=== PATIENT | female | born 1985 | race Caucasian/White ===

== ENCOUNTER 2016-11-25 01:00 | Emergency (ER) | payer MEDICAID ==
[~2016-11-25] VITALS: Ht 149.9 cm; Wt 63.0 kg
[2016-11-25 02:33] LABS: BASOPHILS % 0.6 % (0.0-2.0); CHLORIDE 107 mEq/L (98-107); EOSINOPHILS % 1.7 % (0.0-5.0); HEMATOCRIT. 33.3 % (36.0-48.0); HEMOGLOBIN. 11.3 g/dL (12.0-16.0); INDEX HEMOLYSI 1 (1-3); INDEX ICTERIC 1 (1-4); INDEX LIPEMIC 1 (1-3); LYMPHOCYTES % 16.9 % (20.0-50.0); MEAN CORPUSCULAR HEMOGLOBIN 28.1 pg (28.0-32.0); MEAN CORPUSCULAR HGB CONC 33.9 g/dL (31.0-37.0); MEAN CORPUSCULAR VOLUME 82.8 fL (81.0-99.0); MEAN PLATELET VOLUME 9.8 fl (7.4-10.4); MONOCYTES % 7.4 % (2.0-8.0); NEUTROPHILS % 73.4 % (40.0-76.0); PLATELET 265 x1000/uL (130-400); RED BLOOD CELL COUNT 4.03 mill/uL (4.2-5.4); RED CELL DISTRIBUTION WIDTH 13.9 % (11.6-14.6)
[2016-11-25 02:49] LABS: ANION GAP 11; CALCIUM 8.4 mg/dL (8.5-10.1); CARBON DIOXIDE 23 mEq/L (21-32); UREA NITROGEN BLOOD 11 mg/dL (7-21); eGFR > 60 mL/min (>60)
[2016-11-25 02:55] LABS: B-HCG QUANTITATIVE 8128 mIU/mL (<3)
[2016-11-25] MEDS ORDERED: ACETAMINOPHEN 500MG TABLET PO ONE (03:30)
[2016-11-25 06:59] VITALS: BP 103/57
== END 2016-11-25 07:05 | disposition home or self-care (01) ==
LOC: ER 01:28
DX: O03.9 Complete or unspecified spontaneous abortion without complication (principal); O02.81 Inappropriate change in quantitative human chorionic gonadotropin (hCG) in early pregnancy; Z3A.00 Weeks of gestation of pregnancy not specified; Z90.49 Acquired absence of other specified parts of digestive tract
CPT/HCPCS: 36415; 76801; 80048; 84702; 85025; 86850; 86900; 86901; 99285; Z7610

== ENCOUNTER 2020-10-28 11:22 | Observation (INO) | payer MEDICAID, OTHER ==
[~2020-10-28] VITALS: Ht 149.9 cm; Wt 76.2 kg
== END 2020-10-28 12:35 | disposition home or self-care (01) ==
LOC: 8 EST LDRP 11:22
PROVIDERS: ADMIT Obstetrics & Gynecology; ATTEND Obstetrics & Gynecology
DX: O26.893 Other specified pregnancy related conditions, third trimester (principal); R10.9 Unspecified abdominal pain; Z3A.38 38 weeks gestation of pregnancy
CPT/HCPCS: 59025; G0378; 99281

== ENCOUNTER 2020-11-01 20:25 | Emergency (ER) | payer OTHER ==
[~2020-11-01] VITALS: Ht 149.9 cm; Wt 76.0 kg
[2020-11-01 20:33] VITALS: BP 140/87
[2020-11-01] MEDS ORDERED: ACETAMINOPHEN 325MG TABLET PO ONE (22:30)
== END 2020-11-01 23:39 | disposition home or self-care (01) ==
LOC: ER 20:25
DX: L03.317 Cellulitis of buttock (principal); Z98.890 Other specified postprocedural states
CPT/HCPCS: 99284; Z7610

== ENCOUNTER 2020-11-21 12:13 | Inpatient (IN) | payer MEDICAID ==
[~2020-11-21] VITALS: Ht 149.9 cm; Wt 78.5 kg
[2020-11-21] MEDS ORDERED: DEXT 5%/LR + PITOCIN 20UNITS/L 1,000 ML IV SCH ×2 (13:30→16:45)
[2020-11-21] MEDS ORDERED: LACTATED RINGERS 1,000 ML IV SCH (13:30)
[2020-11-21 14:04] LABS: BASOPHILS % 0.5 % (0.0-2.0); EOSINOPHILS % 0.3 % (0.0-5.0); HEMATOCRIT. 35.3 % (36.0-48.0); HEMOGLOBIN. 12.4 g/dL (12.0-16.0); LYMPHOCYTES % 19.5 % (20.0-50.0); MEAN CORPUSCULAR HEMOGLOBIN 31.3 pg (28.0-32.0); MEAN CORPUSCULAR VOLUME 88.8 fL (81.0-99.0); MEAN PLATELET VOLUME 10.6 fl (7.4-10.4); NEUTROPHILS % 72.7 % (40.0-76.0); PLATELET 229 x1000/uL (130-400); RED BLOOD CELL COUNT 3.97 mill/uL (4.2-5.4); RED CELL DISTRIBUTION WIDTH 13.9 % (11.6-14.6)
[2020-11-21 14:09] LABS: CLARITY URINE CLEAR (CLEAR); COLOR URINE YELLOW (YELLOW); KETONES URINE NEGATIVE (NEGATIVE); LEUKOCYTE ESTERASE URINE TRACE (NEGATIVE); NITRITE URINE NEGATIVE (NEGATIVE); OCCULT BLOOD URINE NEGATIVE (NEGATIVE); PH URINE 5.5 (4.5-8.0); PROTEIN URINE NEGATIVE (NEGATIVE); SPECIFIC GRAVITY URINE 1.022 (1.005-1.030); UROBILINOGEN URINE 0.2 E.U./dL (0.2-1.0)
[2020-11-21 14:15] LABS: PARTIAL THROMBOPLASTIN TIME 27.3 sec (23.4-31.0); PROTHROMBIN TIME 10.3 sec (9.6-11.0)
[2020-11-21] MEDS ORDERED: MORPHINE SULFATE/PF 1MG/ML 10ML AMP ONE (14:24)
[2020-11-21] MEDS ORDERED: OXYTOCIN 10 UNITS/ML 1ML ONE (14:27)
[2020-11-21] MEDS ORDERED: EPHEDRINE SULFATE 50MG/ML VIAL ONE ×2 (14:28→14:47)
[2020-11-21] MEDS ORDERED: SODIUM CHLORIDE 0.9% 10ML VIAL ONE ×2 (14:28→15:13)
[2020-11-21] MEDS ORDERED: CITRIC ACID/SODIUM CITRATE SOLN 30ML UDC PO SCH (14:30)
[2020-11-21 14:32] LABS: *AMPHETAMINES SCREEN URINE NEGATIVE (NEGATIVE); *BARBITURATES SCREEN URINE NEGATIVE (NEGATIVE); *BENZODIAZEPINES SCREEN URINE NEGATIVE (NEGATIVE); *COCAINE SCREEN URINE NEGATIVE (NEGATIVE); METHADONE URINE SCREEN NEGATIVE (NEGATIVE)
[2020-11-21 14:33] LABS: CANNABINOID URINE SCREEN NEGATIVE (NEGATIVE); OPIATES URINE SCREEN NEGATIVE (NEGATIVE); PHENCYCLIDINE URINE SCREEN NEGATIVE (NEGATIVE)
[2020-11-21 14:47] LABS: HEPATITIS B SURFACE ANTIGEN NEGATIVE
[2020-11-21] MEDS ORDERED: PHENYLEPHRINE HCL 10 MG/ML 1ML (IV VIAL) IV ONE (14:49)
[2020-11-21] MEDS ORDERED: METOCLOPRAMIDE HCL 10MG/2ML VIAL ONE (14:52)
[2020-11-21] MEDS ORDERED: GLYCOPYRROLATE 0.2 MG/ML 2ML VIAL ONE (15:07)
[2020-11-21] MEDS ORDERED: CEFAZOLIN SODIUM 1000MG/VIAL ONE (15:13)
[2020-11-21] MEDS ORDERED: ONDANSETRON HCL 4MG/2ML INJ ONE (15:51)
[2020-11-21] MEDS ORDERED: DEXAMETHASONE 4MG/ML 1ML VIAL ONE (16:03)
[2020-11-21] MEDS ORDERED: ONDANSETRON HCL 4MG/2ML INJ IV PRN (16:45)
[2020-11-21] MEDS ORDERED: KETOROLAC 30MG/ML VIAL IV PRN (16:45)
[2020-11-21] MEDS ORDERED: RHO(D) IMMUNE GLOBULIN 300 MCG/SYR IM PRN (16:45)
[2020-11-21] MEDS ORDERED: BISACODYL 10MG SUPP PR PRN (16:45)
[2020-11-21] MEDS ORDERED: IBUPROFEN 400MG TABLET PO PRN (16:45)
[2020-11-21 18:45] VITALS: BP 120/67
[2020-11-21 21:30] VITALS: BP 121/71
[2020-11-22 01:00] VITALS: BP 118/69
[2020-11-22 05:10] VITALS: BP 115/70
[2020-11-22 06:38] LABS: BASOPHILS % 0.2 % (0.0-2.0); HEMATOCRIT. 30.3 % (36.0-48.0); HEMOGLOBIN. 10.7 g/dL (12.0-16.0); LYMPHOCYTES % 8.6 % (20.0-50.0); MEAN CORPUSCULAR HEMOGLOBIN 31.7 pg (28.0-32.0); MEAN CORPUSCULAR VOLUME 89.6 fL (81.0-99.0); MEAN PLATELET VOLUME 10.6 fl (7.4-10.4); MONOCYTES % 3.7 % (2.0-8.0); NEUTROPHILS % 87.5 % (40.0-76.0); PLATELET 181 x1000/uL (130-400); RED BLOOD CELL COUNT 3.38 mill/uL (4.2-5.4); RED CELL DISTRIBUTION WIDTH 13.9 % (11.6-14.6)
[2020-11-22 07:39] VITALS: BP 116/76
[2020-11-22 16:08] VITALS: BP 101/55
[2020-11-22 19:30] VITALS: BP 113/75
[2020-11-22] MEDS: IBUPROFEN 800MG TABLET PO PRN (19:42)
[2020-11-23] MEDS: IBUPROFEN 800MG TABLET PO PRN ×2 (03:28→08:50)
[2020-11-23 04:00] VITALS: BP 119/72
[2020-11-23] MEDS ORDERED: FERR325T6 MT (06:40)
[2020-11-23] MEDS ORDERED: MULT1TAB76 MT (06:40)
[2020-11-23] MEDS ORDERED: IBUP-2030 PO (06:40)
[2020-11-23 07:30] VITALS: BP 116/73
[2020-11-23 10:35] LABS: BASOPHILS % 0.5 % (0.0-2.0); EOSINOPHILS % 1.2 % (0.0-5.0); HEMATOCRIT. 30.4 % (36.0-48.0); HEMOGLOBIN. 10.5 g/dL (12.0-16.0); LYMPHOCYTES % 16.2 % (20.0-50.0); MEAN CORPUSCULAR HEMOGLOBIN 31.3 pg (28.0-32.0); MEAN CORPUSCULAR VOLUME 90.7 fL (81.0-99.0); MEAN PLATELET VOLUME 10.1 fl (7.4-10.4); MONOCYTES % 6.5 % (2.0-8.0); NEUTROPHILS % 75.6 % (40.0-76.0); PLATELET 165 x1000/uL (130-400); RED BLOOD CELL COUNT 3.35 mill/uL (4.2-5.4)
== END 2020-11-23 12:00 | disposition home or self-care (01) | DRG 541 ==
LOC: 8 EST LDRP 12:13 → OBSVTOIN 12:13 → INTOOBSV 12:13 → 8EST 18:50
PROVIDERS: ADMIT Obstetrics & Gynecology; ATTEND Obstetrics & Gynecology
PROC: 10E0XZZ Delivery of Products of Conception, External Approach (ICD-10-PCS; principal; 2020-11-21)
PROC: 0UB70ZZ Excision of Bilateral Fallopian Tubes, Open Approach (ICD-10-PCS; 2020-11-21)
DX: O34.211 Maternal care for low transverse scar from previous cesarean delivery (principal); O69.81X0 Labor and delivery complicated by cord around neck, without compression, not applicable or unspecified; O99.03 Anemia complicating the puerperium; Z37.0 Single live birth; Z3A.37 37 weeks gestation of pregnancy; Z30.2 Encounter for sterilization
CPT/HCPCS: 36415; 80305; 81003; 85025; 86592; 86703; 86762; 86850; 86900; 87340; 87426; 88302; 88307; 99281; J0690; J1100; J2274; J2370; J2405; J2590; J2765; J3490; J7120

== ENCOUNTER 2021-06-14 22:41 | Emergency (ER) | payer MEDICAID ==
[~2021-06-14] VITALS: Ht 154.9 cm; Wt 70.4 kg
[~2021-06-14 22:41] MED LIST: FERR325T6 MT; IBUP-2030 PO; MULT1TAB76 MT
[2021-06-15] MEDS ORDERED: VISCOUS LIDOCAINE 2% 15 ML UDC PO STA (01:16)
[2021-06-15] MEDS ORDERED: MAGNESIUM/ALUMINUM HYDROXIDE/SIMETHICONE 30ML UDC PO STA (01:16)
[2021-06-15] MEDS ORDERED: IBUPROFEN 600MG TABLET PO STA (01:16)
[2021-06-15 02:10] LABS: BASOPHILS % 0.6 % (0.0-2.0); EOSINOPHILS % 0.9 % (0.0-5.0); HEMATOCRIT. 38.2 % (36.0-48.0); HEMOGLOBIN. 13.1 g/dL (12.0-16.0); LYMPHOCYTES % 22.9 % (20.0-50.0); MEAN CORPUSCULAR HEMOGLOBIN 29.1 pg (28.0-32.0); MEAN CORPUSCULAR VOLUME 84.7 fL (81.0-99.0); MEAN PLATELET VOLUME 10.2 fl (7.4-10.4); MONOCYTES % 6.2 % (2.0-8.0); NEUTROPHILS % 69.4 % (40.0-76.0); PLATELET 315 x1000/uL (130-400); RED BLOOD CELL COUNT 4.51 mill/uL (4.2-5.4); RED CELL DISTRIBUTION WIDTH 13.6 % (11.6-14.6)
[2021-06-15 02:16] LABS: CHLORIDE 109 mEq/L (98-107)
[2021-06-15 02:19] LABS: COLOR URINE YELLOW (YELLOW); KETONES URINE NEGATIVE (NEGATIVE); LEUKOCYTE ESTERASE URINE NEGATIVE (NEGATIVE); NITRITE URINE NEGATIVE (NEGATIVE); OCCULT BLOOD URINE NEGATIVE (NEGATIVE); PROTEIN URINE NEGATIVE (NEGATIVE); SPECIFIC GRAVITY URINE 1.021 (1.005-1.030); UROBILINOGEN URINE 0.2 E.U./dL (0.2-1.0)
[2021-06-15 02:23] LABS: CLARITY URINE HAZY (CLEAR)
[2021-06-15 02:32] LABS: HCG SCREEN NEGATIVE
[2021-06-15] MEDS ORDERED: AMOX-424 MT (03:58)
[2021-06-15] MEDS ORDERED: IBUP-2028 MT (03:58)
[2021-06-15] MEDS ORDERED: HYDR-4001 MT (03:58)
[2021-06-15] MEDS ORDERED: AMOXICILLIN/POTASSIUM CLAVULANATE 875/125MG TAB PO ONE (04:15)
[2021-06-15] MEDS ORDERED: HYDROCODONE/ACETAMINOPHEN 5/325MG TABLET PO ONE (04:15)
[2021-06-15 04:41] VITALS: BP 115/74
== END 2021-06-15 04:58 | disposition home or self-care (01) ==
LOC: ER 22:41
DX: K57.92 Diverticulitis of intestine, part unspecified, without perforation or abscess without bleeding (principal); R10.12 Left upper quadrant pain; Z98.890 Other specified postprocedural states; Z98.51 Tubal ligation status
CPT/HCPCS: 36415; 74176; 80053; 81003; 81025; 84703; 85025; 99284

== ENCOUNTER 2023-12-11 15:52 | Emergency (ER) | payer MEDICAID, OTHER ==
[~2023-12-11] VITALS: Ht 149.9 cm; Wt 72.6 kg
[~2023-12-11 15:52] MED LIST changes: +AMOX-424 MT; +HYDR-4001 MT; +IBUP-2028 MT
[2023-12-11 16:18] VITALS: BP 133/86; PULSE 91; RESP 16; TEMP 98.4; O2SAT 99
[2023-12-11 16:56] LABS: BASOPHILS % 0.7 % (0.0-2.0); DIFFERENTIAL COMMENT 0; EOSINOPHILS % 1.2 % (0.0-5.0); HEMATOCRIT. 31.8 % (36.0-48.0); HEMOGLOBIN. 10.6 g/dL (12.0-16.0); LYMPHOCYTES % 24.7 % (20.0-50.0); MEAN CORPUSCULAR HEMOGLOBIN 25.1 pg (28.0-32.0); MEAN CORPUSCULAR HGB CONC 33.4 g/dL (31.0-37.0); MEAN PLATELET VOLUME 9.6 fl (7.4-10.4); MONOCYTES % 7.7 % (2.0-8.0); NEUTROPHILS % 65.7 % (40.0-76.0); PLATELET 400 x1000/uL (130-400); RED BLOOD CELL COUNT 4.24 mill/uL (4.2-5.4); RED CELL DISTRIBUTION WIDTH 16.2 % (11.6-14.6); WHITE BLOOD COUNT 10.5 x1000/uL (4.5-11.0)
[2023-12-11 17:15] LABS: ALANINE AMINOTRANSFERASE 15 IU/L (10-49); ALBUMIN 4.6 g/dL (3.2-4.8); ASPARTATE AMINOTRANSFERASE 14 IU/L (<34); BILIRUBIN TOTAL 0.3 mg/dL (0.1-1.0); CARBON DIOXIDE 25 mEq/L (21-32); CHLORIDE 108 mEq/L (98-107); CREATININE 0.8 mg/dL (0.6-1.0); GLUCOSE 87 mg/dL (70-105); POTASSIUM 3.8 mEq/L (3.5-5.1); SODIUM 140 mEq/L (136-145); UREA NITROGEN BLOOD 10 mg/dL (9-23)
[2023-12-11 17:18] LABS: TROPONIN I HIGH SENSITIVITY < 4 ng/L (3.0-34)
[2023-12-12 11:30] LABS: CLARITY URINE CLEAR (CLEAR); COLOR URINE YELLOW (YELLOW); GLUCOSE URINE NEGATIVE (NEGATIVE); KETONES URINE NEGATIVE (NEGATIVE); LEUKOCYTE ESTERASE URINE NEGATIVE (NEGATIVE); NITRITE URINE NEGATIVE (NEGATIVE); OCCULT BLOOD URINE NEGATIVE (NEGATIVE); PH URINE 6.5 (4.5-8.0); PROTEIN URINE NEGATIVE (NEGATIVE); SPECIFIC GRAVITY URINE 1.044 (1.005-1.030); UROBILINOGEN URINE 0.2 E.U./dL (0.2-1.0)
== END 2023-12-11 16:00 | disposition left against medical advice (07) ==
LOC: ER 15:52
DX: R07.89 Other chest pain (principal); Z53.21 Procedure and treatment not carried out due to patient leaving prior to being seen by health care provider
CPT/HCPCS: 36415; 71045; 80053; 81003; 84484; 85025; 93005; 99281

== ENCOUNTER 2023-12-12 01:11 | Emergency (ER) | payer MEDICAID, OTHER ==
[~2023-12-12] VITALS: Ht 165.1 cm; Wt 80.0 kg
[2023-12-12 01:21] VITALS: TEMP 97.8; O2SAT 100
[2023-12-12 03:31] LABS: BASOPHILS % 0.8 % (0.0-2.0); DIFFERENTIAL COMMENT 0; EOSINOPHILS % 0.7 % (0.0-5.0); HEMOGLOBIN. 10.2 g/dL (12.0-16.0); LYMPHOCYTES % 22.6 % (20.0-50.0); MEAN CORPUSCULAR HGB CONC 32.8 g/dL (31.0-37.0); MEAN CORPUSCULAR VOLUME 73.1 fL (81.0-99.0); MEAN PLATELET VOLUME 9.4 fl (7.4-10.4); NEUTROPHILS % 69.9 % (40.0-76.0); PLATELET 330 x1000/uL (130-400); RED BLOOD CELL COUNT 4.24 mill/uL (4.2-5.4); RED CELL DISTRIBUTION WIDTH 16.2 % (11.6-14.6); WHITE BLOOD COUNT 9.5 x1000/uL (4.5-11.0)
[2023-12-12 03:34] VITALS: BP 132/83
[2023-12-12] MEDS: SODIUM CHLORIDE 0.9% 1,000 ML IV ONE (03:34)
[2023-12-12] MEDS: MORPHINE SULFATE 4 MG/ML INJ (FOR IV/IM USE) IV STA (03:34)
[2023-12-12] MEDS: ONDANSETRON HCL 4MG/2ML INJ IV STA (03:34)
[2023-12-12 03:55] LABS: ALANINE AMINOTRANSFERASE 16 IU/L (10-49); ALBUMIN 4.6 g/dL (3.2-4.8); ASPARTATE AMINOTRANSFERASE 14 IU/L (<34); BILIRUBIN TOTAL 0.5 mg/dL (0.1-1.0); CALCIUM 9.1 mg/dL (8.7-10.4); CARBON DIOXIDE 24 mEq/L (21-32); CHLORIDE 108 mEq/L (98-107); CREATININE 0.7 mg/dL (0.6-1.0); GLUCOSE 99 mg/dL (70-105); POTASSIUM 3.5 mEq/L (3.5-5.1); SODIUM 138 mEq/L (136-145); UREA NITROGEN BLOOD 10 mg/dL (9-23)
[2023-12-12 04:01] LABS: B-HCG QUANTITATIVE < 1 mIU/mL (<3)
[2023-12-12 04:03] LABS: HCG SCREEN NEGATIVE
[2023-12-12] MEDS: IOHEXOL-300 100 ML BOTTLE ONE (06:52)
[2023-12-12] MEDS: ONDANSETRON 4MG ODT PO ONE (13:51)
[2023-12-12 16:44] VITALS: PULSE 89; RESP 16
== END 2023-12-12 16:45 | disposition home or self-care (01) ==
LOC: ER 01:11
DX: R10.32 Left lower quadrant pain (principal); Z98.890 Other specified postprocedural states
CPT/HCPCS: 99285; 74177; 96374; 76830; 76856; 96375; 80053; 84703; 84702; 83605; 83690; 85025; 36415; Q9967; J2405; J2270; J7030